=== PATIENT | male | born 1965 | race Caucasian/White ===

== ENCOUNTER → 2018-07-27 | Outpatient (CLI) | payer BC, OTHER ==
[~2018-07-27] MED LIST: CLEOCIN HCL300 MG PO; CLOTRIMAZOLE 1%15 G1 TOP; DESITIN113 GM TOP; NOHOMEMEDICATIONS; POTASSIUM CL 225 MEQ PO; SENNA OR
== END ==
LOC: MRI 09:21
DX: S82.55XA Nondisplaced fracture of medial malleolus of left tibia, initial encounter for closed fracture (principal); S96.812A Strain of other specified muscles and tendons at ankle and foot level, left foot, initial encounter; S93.492A Sprain of other ligament of left ankle, initial encounter; Z88.0 Allergy status to penicillin; X58.XXXA Exposure to other specified factors, initial encounter; Y93.89 Activity, other specified; Y92.89 Other specified places as the place of occurrence of the external cause; Y99.8 Other external cause status

== ENCOUNTER → 2019-05-05 | Outpatient (CLI) | payer OTHER | LOC: CAT 13:00 | DX: Z13.6 Encounter for screening for cardiovascular disorders (principal); E78.00 Pure hypercholesterolemia, unspecified; I25.10 Atherosclerotic heart disease of native coronary artery without angina pectoris ==